=== PATIENT | male | born 1990 | race Caucasian/White ===

== ENCOUNTER 2020-01-31 15:05 | Outpatient (CLI) | payer BC, SELFPAY ==
--- NOTE | ~2020-01-31 | US_ITS ---
EXAMINATION: US soft tissue head and neck DATE: 01/31/2020 15:37 INDICATION: Focal swelling behind the left ear. Enlarged lymph nodes. TECHNIQUE: Grayscale and Doppler ultrasound images of the left scalp were obtained. COMPARISON: None. FINDINGS: In the patient's area of concern posterior to to the left ear, there is a normal superficia l lymph node. IMPRESSION: 1. No abnormal mass or lymphadenopathy in the patient's area of concern posterior to left ear. Reviewed, dictated and finalized at location A. IMPRESSION: 1. 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
== END 2020-01-31 15:06 | disposition home or self-care (01) ==
PROVIDERS: PCP Family Medicine; Visit Provider Nurse Practitioner Family
DX: R59.0 Localized enlarged lymph nodes (principal)
CPT/HCPCS: 76536

== ENCOUNTER → 2020-10-26 07:17 | Outpatient (CLI) | payer BC, SELFPAY ==
[2020-10-26 19:48] LABS: SARS-CoV-2 RNA PCR Negative
== END ==
PROVIDERS: PCP Family Medicine; Visit Provider Nurse Practitioner Family
DX: Z20.822 Contact with and (suspected) exposure to COVID-19 (principal); R68.89 Other general symptoms and signs
CPT/HCPCS: C9803; U0003; U0005

== ENCOUNTER 2023-01-18 08:08 | Emergency (ER) | payer BC, SELFPAY ==
--- NOTE | ~2023-01-18 | XR_ITS ---
EXAMINATION: XR knee RT min 4V DATE: 01/18/2023 08:29 INDICATION: Right knee pain TECHNIQUE: Four views of the right knee were obtained. COMPARISON: 02/28/2011 FINDINGS: Alignment is normal. No fracture or osteochondral lesion. Changes in the distal femur proxi mal tibia are consistent with prior ACL repair. Joint spaces are normal with no erosions. There is a small knee joint effusion. Soft tissues are unremarkable. IMPRESSION: 1. Small knee joint effusion without acute osseous abnormality. Reviewed, dictated and finalized at location A.
--- NOTE | 2023-01-18 08:09 | ED.EXTPRO ---
HPI - Extremity Problem General Chief complaint: Extremity Injury, Lower Stated complaint: Rt Knee Pain Time Seen by Provider: 01/18/23 08:08 Source: patient Mode of arrival: ambulatory Limitations: no limitations History of Present Illness HPI Narrative: Yg is a 32-year-old male patient presenting to the clinic today with complaints of right knee pain x1 day. He reports he was playing pickle ball yesterday and he jumped up when he landed he felt that he tweaked his knee. He reports he is having pain when ambulating/weight-bearing and is unable to fully flex or extend the knee. History of right knee arthroscopy due to ACL injury. He is using crutches today. Related Data Home Medications Medication Instructions Recorded Confirmed No Home Medications 01/18/23 01/18/23 Allergies Allergy/AdvReac Type Severity Reaction Status Date / Time cefaclor AdvReac Mild Rash Verified 01/18/23 08:20 Review of Systems Review of Systems: Pertinent positives per HPI. Patient denies any fever, chills, rash, headache, visual changes, dizziness, cough, runny nose, sore throat, shortness of breath, chest pain, palpitations, nausea, vomiting, diarrhea, constipation, abdominal pain, or any urinary issues. [facility] Past Medical History Medical History Adult BMI 27.0-27.9 kg/sq m Family History Family History Grandparent Carcinoma of colon Father No family history of malignant neoplasm Mother No problems noted. Sibling No problems noted. 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 There is no relevant family history pertinent to the patient complaint. Exam Narrative: General: Well-developed, well nourished, in no apparent distress Head: Normocephalic, atraumatic. Cardio: Regular rate and rhythm, s1 and s2 normal, no murmur appreciated. Resp: Clear to auscultation bilaterally, no rhonchi, rales, wheezing or rubs. Musculoskeletal: No deformity, tender to palpation to medial and lateral knee as well as posterior proximal knee/distal femur, limited flexion and extension of the right knee due to pain, no crepitus, pain with anterior drawer testing, no pain with valgus, varus, or posterior drawer testing,muscle strength strong and equal, peripheral pulse strong, no edema, no cyanosis, walking with crutches Course Course Emergency Course: Portions of this record may have been created with voice recognition software. Level of Care: Express Care Visit Vital Signs Vital signs: Vital signs reviewed MDM - Extremity (Nontraumatic) MDM Narrative Medical decision making narrative: At the time of visit patient is resting comfortably on the exam table. Patient has positive anterior drawer test. X-ray was performed and shows a small knee joint effusion. Changes in the distal femur proximal tibia are consistent with a prior ACL repair. Recommend follow-up with his orthopedic provider to determine need for MRI to rule out ACL tear/injury or internal derangement of the right knee. Supportive measures were discussed with the patient he voiced understanding of the discharge instructions and agrees to treatment plan. Differential Diagnosis Differential diagnosis: Likely other (Knee sprain, internal derang
[2023-01-18 08:14] VITALS: BP 132/74; PULSE 70; RESP 16; TEMP 36.3; O2SAT 98
== END 2023-01-18 08:56 | disposition home or self-care (01) ==
PROVIDERS: Emergency Provider Nurse Practitioner Family; PCP Family Medicine
DX: M23.91 Unspecified internal derangement of right knee (principal); S83.511A Sprain of anterior cruciate ligament of right knee, initial encounter; X50.9XXA Other and unspecified overexertion or strenuous movements or postures, initial encounter; Y93.69 Activity, other involving other sports and athletics played as a team or group; M25.461 Effusion, right knee
CPT/HCPCS: 73564; 99213; G0463

== ENCOUNTER 2024-01-09 10:59 | Emergency (ER) | payer BC, SELFPAY ==
--- NOTE | 2024-01-09 11:04 | ED.GENADULT ---
HPI - General Adult General Chief complaint: Extremity Problem,Nontraumatic Stated complaint: rt knee pain Time Seen by Provider: 01/09/24 11:04 Source: patient Mode of arrival: ambulatory Limitations: no limitations History of Present Illness HPI narrative: 33-year-old male patient presents to the [facility] with complaints of right knee pain. Patient states he was playing pickle ball yesterday and pivoted to hit the ball and thinks he twisted his knee. Patient states at 1st he was having pain with walking and is now able to walk on it but states he is unable to fully extend his knee. Patient states he did have ACL surgery in that knee in 2010. Patient states he has been taking ibuprofen for the pain. Related Data Allergies Allergy/AdvReac Type Severity Reaction Status Date / Time cefaclor Allergy Mild Rash Verified 01/09/24 11:24 Review of Systems Review of Systems: CONSTITUTIONAL: Denies fever, chills, or sweats. EYES: Denies visual changes, redness, or discharge. ENT: Denies rhinorrhea, congestion, sore throat, or otalgia. CARDIOVASCULAR: Denies chest pain, palpitations, or edema. RESPIRATORY: Denies cough or dyspnea. GASTROINTESTINAL: Denies abdominal pain, nausea, vomiting, or diarrhea. GENITOURINARY: Denies dysuria or hematuria. SKIN: Denies rash or itching. MUSCULOSKELETAL: Denies back pain, Right knee joint pain, denies myalgia. NEUROLOGIC: Denies headache, numbness, or weakness. PSYCHIATRIC: Denies anxiety or depression. [facility] Past Medical History Medical History Adult BMI 27.0-27.9 kg/sq m Family History Family History Grandparent Carcinoma of colon Father No family history of malignant neoplasm Mother No problems noted. Sibling No problems noted. 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 There is no relevant family history pertinent to the presenting complaint. Exam Narrative: GENERAL: Well-appearing, well-nourished, and in no acute distress. HEAD: Normocephalic, atraumatic. EYES: PERRLA and EOMI. ENT: Nares clear, no rhinorrhea or epistaxis. Mucous membranes moist. NECK: Supple. No lymphadenopathy CHEST: Clear to auscultation. No respiratory distress. HEART: Regular rate and rhythm. No murmur heard. Normal peripheral pulses. ABDOMEN: Soft, nontender, nondistended, normal active bowel sounds. EXTREMITIES: Patient is able to bear weight and ambulate with pain to right knee. No surface trauma, STS, or obvious effusion. No overlying erythema or warmth. The R knee is without obvious asymmetry or deformity when compared to the L knee. Patient is able to do deep knee bend with significant pain to the right knee, unable to fully extend knee right knee, no pain with internal and external rotation. no tendernss to palpation of the patella, no effusion or ballottement. No tenderness over the infrapatellar tendon. tenderness over the medial joint lone ot the medial tibial plateaus. no tenderness over the proximal fibular head. no tenderness, fullness, or mass of the popliteal fossa. No quadriceps tenderness. miles laxity of the ACL, no laxity PCL, MCL, or LCL. No collateral ligament laxity to valgus or vargus stress. Negative inés/drawer sign. Negative Canelo. Negative Apley compression and/or distr
[2024-01-09 11:24] VITALS: BP 137/83; PULSE 74; RESP 16; TEMP 36.5; O2SAT 99
== END 2024-01-09 11:50 | disposition home or self-care (01) ==
PROVIDERS: Emergency Provider Nurse Practitioner Family; PCP Family Medicine
DX: M23.91 Unspecified internal derangement of right knee (principal)
CPT/HCPCS: 99213; G0463; L1830

== ENCOUNTER 2024-01-12 15:54 | Outpatient (CLI) | payer BC, SELFPAY ==
--- NOTE | ~2024-01-12 | XR_ITS ---
XR knee RT min 4V Ordering provider: DREW Alas History: . twisting injury 4 days ago pain when walking . Comparison: January 18, 2023 FINDINGS: BONES: No acute fracture or dislocation. Post ACL reconstruction changes are noted. JOINT SPACES: Narrowing of the lateral compartment. SOFT TISSUES: Normal. IMPRESSION: No acute osseous abnormality right knee. Postoperative changes for ACL reconstruction. Mild osteoarthritic changes. Consider MRI knee if there is concern for soft tissue internal derangement. Reviewed, dictated and finalized at location A.
== END 2024-01-12 15:55 ==
PROVIDERS: PCP Family Medicine; Visit Provider Nurse Practitioner Family
DX: M17.11 Unilateral primary osteoarthritis, right knee (principal); X50.0XXA Overexertion from strenuous movement or load, initial encounter; Z98.890 Other specified postprocedural states
CPT/HCPCS: 73564

== ENCOUNTER 2024-01-31 12:26 | Outpatient (CLI) | payer BC, SELFPAY ==
--- NOTE | ~2024-01-31 | MR_ITS ---
MRI of the right knee Clinical history: Injury, other specified postprocedural state Technique: Coronal proton density and proton density-weighted images, sagittal proton-density and T2 fat-sat images, and axial proton-density fat-saturated images were acquired. Findings: There is evidence of prior ACL reconstruction. ACL graft is not clearly visualized, and is suspected to be completely torn. Posterior cruciate ligament is intact. Medial collateral ligament an d the lateral collateral again conflux are intact. Popliteus tendon is intact. There is suspected focal tear of the free edge of the body segment of the lateral meniscus. There is a bucket-handle tear of the medial meniscus, with the handle fragment flipped towards intercondylar n otch. Articular cartilage in the patellofemoral compartment and medial compartment is well preserved. There is mild chondromalacia of the lateral compartment. There are minimal tricompartmental osteophytes. Extensor mechanism is intact. No significant joint effusion. Moderate Arias cyst present. Impression: Prior ACL reconstruction. Suspected recurrent complete tear of the ACL graft, which is not clearly vi sualized/delineated. Extensive bucket-handle tear of the medial meniscus, as detailed above. Possible focal free edge tear of the body segment of the lateral meniscus. Mild chondromalacia of the lateral compartment. Moderate Arias's cyst. Reviewed, dictated and finalized at location . Impression: Prior ACL reconstruction. Suspected recurrent complete tear of the ACL graft, w hich is not clearly visualized/delineated. Extensive bucket-handle tear of the medial meniscus, as detailed above. Possible focal free edge tear of the body segment of the lateral meniscus. Mild chondromalacia of the lateral compartment. Moderate Arias's cyst.
== END 2024-01-31 12:27 | disposition home or self-care (01) ==
PROVIDERS: PCP Family Medicine; Visit Provider Nurse Practitioner Adult Health
DX: S89.90XA Unspecified injury of unspecified lower leg, initial encounter (principal); Z98.890 Other specified postprocedural states; S83.211A Bucket-handle tear of medial meniscus, current injury, right knee, initial encounter; M94.261 Chondromalacia, right knee; M71.21 Synovial cyst of popliteal space [Baker], right knee
CPT/HCPCS: 73721

== ENCOUNTER 2024-02-28 12:11 | Emergency (ER) | payer BC, SELFPAY ==
--- NOTE | 2024-02-28 12:14 | ED.GENADULT ---
HPI - General Adult General Chief complaint: Upper Respiratory Infection Stated complaint: sore throat, swollen glands, mouth sores Time Seen by Provider: 02/28/24 12:14 Source: patient Mode of arrival: ambulatory Limitations: no limitations History of Present Illness HPI narrative: 33-year-old male patient presents to the [facility] with complaints of sore throat, sweats swollen glands, fatigue, body aches and chills for the past 3 days. Denies any fevers that he is aware of. Related Data Allergies Allergy/AdvReac Type Severity Reaction Status Date / Time cefaclor AdvReac Mild Rash Verified 02/28/24 12:27 Review of Systems Review of Systems: CONSTITUTIONAL: Denies fever, Positive body aches and chills, denies sweats. EYES: Denies visual changes, redness, or discharge. ENT: Denies rhinorrhea, congestion, positive sore throat, denies otalgia. CARDIOVASCULAR: Denies chest pain, palpitations, or edema. RESPIRATORY: Denies cough or dyspnea. GASTROINTESTINAL: Denies abdominal pain, nausea, vomiting, or diarrhea. GENITOURINARY: Denies dysuria or hematuria. SKIN: Denies rash or itching. MUSCULOSKELETAL: Denies back pain, joint pain, positive myalgia. NEUROLOGIC: Denies headache, numbness, or weakness. PSYCHIATRIC: Denies anxiety or depression. [facility] Past Medical History Medical History ACL graft tear Exposure to COVID-19 virus Need for lipid screening Screening for diabetes mellitus Surgical History Surgical History History of repair of anterior cruciate ligament Family History Family History Grandparent Carcinoma of colon Father No family history of malignant neoplasm Mother No problems noted. Sibling No problems noted. Other Diabetes mellitus Family history of coronary artery disease Hypertension Social History Social History Smoking status: Never smoker Second hand tobacco smoke exposure: No Alcohol intake: never Substance use: never Substance use type: does not use Living arrangements: with family Occupation/Education: occupation Additional occupation/education comments: collection manager Gender identity (if verbalized by the patient): Male Comments At the time of my signature I agree with nursing past medical history, surgical, social, and family history. There is no relevant family history pertinent to the presenting complaint. Exam Narrative: GENERAL: Well-appearing, well-nourished, and in no acute distress. HEAD: Normocephalic, atraumatic. EYES: PERRLA and EOMI. ENT: Nares clear, no rhinorrhea or epistaxis. Mucous membranes moist. posterior pharynx with erythema and 3 to 4+ tonsillar enlargement no exudates or lesions present. NECK: Supple. Tender cervical lymphadenopathy CHEST: Clear to auscultation. No respiratory distress. HEART: Regular rate and rhythm. No murmur heard. Normal peripheral pulses. ABDOMEN: Soft, nontender, nondistended, normal active bowel sounds. EXTREMITIES: Normal range of motion. No edema. SKIN: Warm, dry, no rash. NEURO: No focal deficits. Alert and oriented x3. Course Course Level of Care: Express Care Visit Vital Signs Vital signs: Vital Signs Temperature 37.4 C 02/28/24 12:26 Pulse Rate 104 H 02/28/24 12:26 Respiratory Rate 16 02/28/24 12:26 Blood Pressure 137/82 02/28/24 12:26 Pulse Oximetry 98 02/28/24 12:26 Oxygen Delivery Room Air 02/28/24 12:26 Temperature 37.4 C 02/28/24 12:28 Pulse Rate 104 H 02/28/24 12:28 Respiratory Rate 16 02/28/24 12:28 Blood Pressure 137/82 02/28/24 12:28 Pulse Oximetry 98 02/28/24 12:28 Oxygen Delivery Room Air 02/28/24 12:28 Vital signs reviewed. The patient has been informed that they may have pre-hypertension or H
[2024-02-28 12:26] VITALS: BP 137/82; PULSE 104; RESP 16; TEMP 37.4; O2SAT 98
[2024-02-28 12:28] VITALS: BP 137/82; PULSE 104; RESP 16; TEMP 37.4; O2SAT 98
[2024-02-28 12:36] LABS: EDSTREPNEGPOS1 Presumptive Negative
[2024-02-28 12:51] LABS: EDINFLUASCREEN Negative; EDINFLUBSCREEN Negative
== END 2024-02-28 13:06 | disposition home or self-care (01) ==
PROVIDERS: Emergency Provider Nurse Practitioner Family; PCP Family Medicine
DX: J06.9 Acute upper respiratory infection, unspecified (principal); J02.9 Acute pharyngitis, unspecified; Z20.822 Contact with and (suspected) exposure to COVID-19
CPT/HCPCS: 87081; 87426; 87804; 87880; 99213; G0463